=== PATIENT | male | born 1995 | race Caucasian/White ===

== ENCOUNTER 2017-07-20 23:44 | Emergency (ER) | payer BC ==
[2017-07-21] MEDS: HYDROCODONE/APAP (5/325) TAB PO ×2 (03:32→03:33)
== END 2017-07-21 05:46 | disposition home or self-care (01) ==
LOC: FTE 23:44
DX: S63.502A Unspecified sprain of left wrist, initial encounter (principal); W21.02XA Struck by soccer ball, initial encounter; Y92.9 Unspecified place or not applicable
CPT/HCPCS: 29125; 73110-LT; 99283-25